=== PATIENT | female | born 1980 | race Caucasian/White ===

== ENCOUNTER 2018-06-12 11:25 | Outpatient (CLI) | payer OTHER | END 2018-06-12 16:38 | disposition home or self-care (01) | LOC: MAMO-SONO 11:25 | DX: R10.2 Pelvic and perineal pain (principal); Z12.31 Encounter for screening mammogram for malignant neoplasm of breast; N60.11 Diffuse cystic mastopathy of right breast; N60.12 Diffuse cystic mastopathy of left breast; N60.19 Diffuse cystic mastopathy of unspecified breast ==

== ENCOUNTER 2019-06-24 11:49 | Outpatient (CLI) | payer OTHER | END 2019-06-24 11:51 | disposition home or self-care (01) | LOC: MAMO-SONO 11:49 → EDBD 11:49 → MAMO-SONO 11:51 | DX: Z12.31 Encounter for screening mammogram for malignant neoplasm of breast (principal); Z87.898 Personal history of other specified conditions; N60.11 Diffuse cystic mastopathy of right breast; N60.12 Diffuse cystic mastopathy of left breast ==